=== PATIENT | male | born 1985 | race Caucasian/White ===

== ENCOUNTER 2020-05-08 18:48 | Emergency (ER) | payer OTHER, SELFPAY ==
[~2020-05-08] VITALS: Ht 188 cm; Wt 95.3 kg
[2020-05-08 18:49] VITALS: BP 134/84; Ht 188 cm; Wt 95.3 kg
== END 2020-05-08 19:46 | disposition home or self-care (01) ==
LOC: ED 18:48
DX: U07.1 COVID-19 (principal); F17.210 Nicotine dependence, cigarettes, uncomplicated
CPT/HCPCS: 99406; U0003